=== PATIENT | male | born 2005 | race Caucasian/White ===

== ENCOUNTER 2024-04-14 10:06 | Outpatient (CLI) | payer OTHER, SELFPAY | END 2024-04-14 10:07 | disposition home or self-care (01) | PROVIDERS: Visit Provider Family Medicine | DX: T50.7X1A Poisoning by analeptics and opioid receptor antagonists, accidental (unintentional), initial encounter (principal); R53.83 Other fatigue; Y92.003 Bedroom of unspecified non-institutional (private) residence as the place of occurrence of the external cause | CPT/HCPCS: A0425; A0429 ==

== ENCOUNTER 2024-04-14 11:02 | Emergency (ER) | payer OTHER, SELFPAY ==
[2024-04-14] VITALS (17 sets, daily range): BP systolic 105–121; BP diastolic 56–72; PULSE 63–92; RESP 7–17; O2SAT 93–99; BMI 35.9
--- OUTSIDE RECORDS SUMMARY | 2024-04-14 12:16 | XMS_ITS | Clinical Summary ---
Author Organization [employer] [facility] Address [address] [place] [address] Care Team Providers Care Heart Coordinator Name Role Phone Curtis Parnell MD Primary Care Provider [phone] Allergies No known active allergies Medications albuterol HFA (PROAIR HFA) 90 mcg/actuation inhalerIndicatio ns:Exercise-corona carlie asthma Inhale 2 Puffs by mouth 4 times daily if needed. 1 Inhaler 3 11/26/2019 Active Active Problems Problem Noted Date Diagnosed Date Need for prophylactic vaccin ation and inoculation against other combinations of diseases 10/31/2006 Immunizations Name Administration Dates Next Due DTaP 11/07/2007,10/31/2006 [id number] (Pediarix) 2003,2003,0 2003 HIB PRP-OMP (PedvaxHIB) 10/31/2006,2003, HIB PRP-T (ActHIB,Hiberix) 2003 HPV 9 (Gardasil 9) 09/26/2015 Hepatitis A (Peds) 09/26/2015 Inactivated Polio Vaccine 11/07/2007 Influenza Virus, Unspecified 2003 Influenza, IIV3 (Age 6-35 mos) 11/17/2010 Influenza, IIV3 (Age >=3 years) 11/24/2012 MENINGOCOCCAL VACCINE 2 VIAL 2MO-55YO (MENVEO) 01/29/2022,09/26/2015 MMR 10/22/2008,10/29/2004 Pneumococcal conj 7-Valent (Prevnar 7) 0 11/07/2007,2003,2003,08/06 Smallpox-Monkeypox (Jynneos) Live, PF 01/12/2023 Tdap 05/23/2023,09/26/2015 Varicella Vaccine 01/29/2022,10/22/2008,11/03/19 05 Family History Medical History Relation Name Comments Diabetes Other 1 Cancer Other 2 Relation Name Status Comments Brother Alive Father Alive Mother Alive Other 1 Other 2 Sister Alive Social History Tobacco Use Types Packs/Day Years Used Date Smoking Tobacco: Some Days Cigarettes Started: 02/14/2018 Passive Smoke Exposure: Current Smokeless Tobacco: Never Tobacco Cessation:Ready to Q uit: Not Asked; Counseling Given: Not Answered Alcohol Use Standard Drinks/Week Comments Not Currently 0 (1 standard drink = 0.6 oz pur e alcohol) PHQ-2 Answer Date Recorded PHQ-2 TOTAL SCORE 3 01/29/2022 Social Connections Answer Date Recorded Frequency of Communication with Friends and Fami ly Not on file 01/29/2022 Financial Resource Strain Answer Date R ecorded Difficulty of Paying Living Expenses Not on file 02/14/2021 Difficulty of Paying Living Expenses Not on file 02/14/2021 Sex and Gender Information Value Date Recorded Sex Assigned at Not on file 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 Gender Identity Not on file Sexual Orientation Not on file Obstetrics History Last Filed Vital Signs Vital Sign Reading Time Taken Comments Blood Pressure 120/60 11/11/2022 4:16 PM CDT Pulse 82 11/11/2022 4:16 PM CDT Temperature 37 C (98.6 F) 11/11/2022 4:16 PM CDT Respiratory Rate 20 11/07/2007 5:32 PM CDT Oxygen Saturation 95% 11/11/2022 4:16 PM CDT Inhaled Oxygen Concentration - - Weight 90.5 kg (199 lb 7 oz) 11/11/2022 4:16 PM CDT Height 174.8 cm (5' 8.82) 11/06/2022 3:40 PM CD T Body Mass Index 29.61 11/06/2022 3:40 PM CDT Plan of Treatment Health Maintenance Due Date Last Done Comments HPV series for age 9-26 (2 - Male 2-dose series) 03/28/2016 09/26/2015 Hepatitis C screening for ag e 18-79 04/29/2021 Pneumococcal series for age 6-49 (1 of 2 - PCV) 04/29/2022 11/07/2007, 2003, 2003, Additional history exists Depression screening for age 12+ 01/29/2023 01/29/2022, 11/09/2018, 09/26/2015 Well Child Check for age 3-20 01/29/2023, 11/26/2019, 09/26/2015, Additional history exists COVID-19 vaccine series ( - season) 2023 03/03/2022 Influenza for age 9-49 10/16/2023 11/24/2012, 2003 BMI (ht and wt on same day) for age 18+ 11/07/2023 11/06/2022, 01/29/2022 Tetanus booster 05/22/2033 05/23/2023, 09/26/2015 HIV for age 15-65 Completed 01/29/2022 Meningococcal series for age 11-21 Completed 2021, 09/26/2015 Tdap Completed 05/23/2023, 09/26/2015 Procedures Procedure Name Priority Date/Time Associated Diagnosis Comments ANTI HIV 1/2 Routine 01/29/2022 2:25 PM FISHERIES TECHNICAL OFFICER Screening for HIV (human immunodeficiency virus) from Last 3 Months or Most Recently Relevant to Health Maintenance Results * ANTI HIV 1/2 [48029.0] (01/29/2022 2:25 PM FISHERIES TECHNICAL OFFICER) HIV-1/HIV-2 ANTIBODY Non-Reacti ve Non-Reacti ve 01/31/2022 8:30 PM FISHERIES TECHNICAL OFFICER [facility] Comment:HIV-1 p24 and HIV-1/ HIV-2 Ab not detected. Blood BLOOD SPECIMEN / Unknown Venipuncture / Unknown 01/29/2022 2:25 PM FISHERIES TECHNICAL OFFICER 01/29/2022 2:25 PM FISHERIES TECHNICAL OFFICER Curtis Parnell MD SEND OUTS Final Resu lt [facility] [address] [place] [address], from Last 3 Months or Most Recently Relevant to Health Maintenance Care Teams Heart Coordinator Relationship Specialty Start Date End Date Curtis Parnell MD [address] [place] [address] PCP - General Family Practice 08/24/12
--- OUTSIDE RECORDS SUMMARY | 2024-04-14 12:16 | XMS_ITS | Clinical Summary ---
Author Organization [facility] Address [address] [place], [place] [address] [address] Care Team Providers Care Rehabilitation Therapy Aide Name Role Phone No Ref-Primary, Physician Primary Care Provider Allergies No known active allergies Medications naloxone (NARCAN) 4 MG/0.1ML nasal spray [place] 1 spray (4 mg) into one nostril alternating nostrils as needed for opioid reversal every 2-3 minutes until assistance arrives 0.2 mL Active Social History Tobacco Use Types Packs/Day Years Used Date Smoking Tobacco: Never Assessed Adolescent Education Answer Date Record ed Getting School Help Needed Not on file 11/20 Sex and Gender Information Value Date Recorded Sex Assigned at Not on file Legal Sex Male 11:19 PM CDT Gender Identity Not on file Sexual Orientation Not on file Last Filed Vital Signs Vital Sign Reading Time Taken Comments Blood Pressure 110/57 04/05/2023 5:00 AM SOCIAL SERVICES MANAGER Pulse 92 04/05/2023 5:00 AM SOCIAL SERVICES MANAGER Temperature 36.9 C (98.4 F) 04/05/2023 4:00 AM SOCIAL SERVICES MANAGER Respiratory Rate 10 04/05/2023 5:00 AM SOCIAL SERVICES MANAGER Oxygen Saturation 93% 04/05/2023 5:00 AM SOCIAL SERVICES MANAGER Inhaled Oxygen Concentration - - Weight 95.3 kg (210 lb) 04/05/2023 1:41 AM SOCIAL SERVICES MANAGER Height 177.8 cm (5' 10) 04/05/2023 1:41 AM SOCIAL SERVICES MANAGER Body Mass Index 30.13 04/05/2023 1:41 AM SOCIAL SERVICES MANAGER Plan of Treatment Health Maintenance Due Date Last Done Comments ADVANCE CARE PLANNING 2003 ANNUAL REVIEW OF HM ORDERS 2003 HPV IMMUNIZATION (2 - Male 2-dose series) 03/28/2016 09/26/2015 HIV SCREENING 04/29/2018 MENINGITIS B IMMUNIZATION (1 of 2 - Standard) 2019 HEPATITIS C SCREENING 04/29/2021 YEARLY PREVENTIVE VISIT 01/29/2023 01/29/2022, 11/25 COVID-19 Vaccine (2 - season) 2023 03/03/2022 INFLUENZA VACCINE (#1) 2023 3, 11/17/2010, 2003 PHQ-2 (once per calendar year) 2024 DTAP/TDAP/TD IMMUNIZATION (8 - Td or Tdap) 05/22/2033 05/23/2023, 09/26/2015, 11/07/2007, Additional history exists ZOSTER IMMUNIZATION (1 of 2) 04/29/2053 HEPATITIS B IMMUNIZATION Completed 004, 2003, 2003 Pneumococcal Vaccine: Pediatrics (0 to 5 Years) and At-Risk Patients (6 to 49 Years) Aged Out 11/07/2007, 2003, 2003, Additional history exists No longer eligible based on patient's age to complete this topic MENINGITIS IMMUNIZATION Completed 01/29/2022, 09/25 Care Teams Rehabilitation Therapy Aide Relationship Specialty Start Date End Date No Ref-Primary, Physician PCP - General 04/05/23
--- OUTSIDE RECORDS SUMMARY | 2024-04-14 12:16 | XMS_ITS | Clinical Summary ---
Author Organization [facility] Address [address] [place] [address] Care Team Providers Care Flaker Operator Name Role Phone None Reported, Pcp Primary Care Provider Unavail able Source Comments Patient records contain information from all sites at [facility]. For routine questions regarding patient records, call [phone] during business hours, M-F 8:00 AM - 5:00 PM Central Time. Record requests for emergency care only can be directed to [phone] at any time.[facility] Allergies No known active allergies Medications hydrOXYzine (ATARAX) 25 mg tablet Take 25 mg by mouth every 6 (six) hours as needed. Active busPIRone (BUSPAR) 7.5 mg tablet Take 7.5 mg by mouth 3 (three) times a day. Active ARIPiprazole (ABILIFY) 5 mg tablet Take 5 mg by mouth daily. Active Active Problems No known active problems Immunizations Immunization Administration Dates Next Due DTaP (Infanrix, Tripedia) 11/07/2007,,2003,2003,2003 HepB, Unspecified 2003,2003,08/07/19 04 Hib, Unspecified 10/31/2006,2003, 4 IPV 11/07/2007, 4,2003,2003 Influenza Split 2003 MMR 10/22/2008,11/02/2004 PCV7 (discontinued) 11/07/2007, 4,2003,2003 Tdap 05/23/2023 [place] 10/22/2008,11/02/2004 influenza trivalent vaccine (6 months and older)(PF) 11/17/2010 Social History Tobacco Use Types Packs/Day Years Used Date Smoking Tobacco: Never Tobacco Cessation:Counseling Given: Not Answered Alcohol Use Standard Drinks/Week Comments Not Currently 0 (1 standard drink = 0.6 oz pur e alcohol) Nutrition Answer Date Recorded Nutrition: EVOO Fat Source Unknown 05/22 Nutrition: Servings of Fruits/Vegetables per Day Not on file 05/23/2023 Dental Answer Date Recorded Dental: Regular Dentist Unknown 05/23/19 24 Sex and Gender Information Value Date Recorded Sex Assigned at Not on file 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 Body Mass Index - - Plan of Treatment Health Maintenance Due Date Last Done Comments HIV Screening 2003 Hearing Screening during Well Child Visit 2003 Hepatitis C Screening 2003 TB Screening during Well Child Visit 2003 1 week Well Child Check-Up 2003 1 month Well Child Check-Up 2003 2 month Well Child Check-Up 2003 4 month Well Child Check-Up 2003 9 month Well Child Check-Up 2003 15 month Well Child Check-Up 06/29/2004 18 month Well Child Check-Up 09/29/2004 2 year Well Child Check-Up 04/01/2005 30 month Well Child Check-Up 09/29/2005 3 year Well Child Check-Up 04/01/2006 Well Child Check-Up Completed in Past Year 04/01/2006 5 year Well Child Check-Up 04/01/2008 6 year Well Child Check-Up 04/01/2009 7 year Well Child Check-Up 04/01/2010 8 year Well Child Check-Up 04/01/2011 10 year Well Child Check-Up 04/01/2013 12 year Well Child Check-Up 04/01/2015 HPV Vaccines (2 - Male 2-dose series) 03/28/2016 09/26/2015 13 year Well Child Check-Up 04/01/2016 14 year Well Child Check-Up 04/01/2017 Vision Screening during Well Child Visit 04/29/2017 15 year Well Child Check-Up 04/01/2018 16 year Well Child Check-Up 04/26/2019 17 year Well Child Check-Up 04/01/2020 18 year Well Child Check-Up 04/01/2021 19 year Well Child Check-Up 04/01/2022 20 year Well Child Check-Up 04/01/2023 COVID-19 Vaccine ( season) 2023 Influenza Vaccine (#1) 2023 3, 11/17/2010, 2003 Depression Screening (Annual PHQ-2) 02/15/2024 19 year Well Child Check-Up 04/01/2024 Well Child Check-Up ([facility]) 04/01/2024 Glucose Test for Med Monitoring 04/05/2024 04/05/2023 DTaP,Tdap,and Td Vaccines (8 - Td or Tdap) 05/22/2033 05/23/2023, 09/26/2015, 11/07/2007, Additional history exists Hepatitis B Vaccines Completed 2003, 2003, 2003, Additional history exists IPV Vaccines Completed 11/07/2007, 05/2003, 2003, Additional history exists Pneumococcal vaccine (0-49 years) Aged Out 11/07/2007, 2003, 2003, Additional history exists No longer eligible based on patient's age to complete this topic Meningococcal Vaccine Completed 01/29/2022, 016 Insurance [facility] Care Teams Flaker Operator Relationship Specialty Start Date End Date None Reported, Pcp PCP - General 12/23/23
--- NOTE | 2024-04-14 12:26 | ED.OVERDOSE ---
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 He states that he went through treatment and completed at about 4 months ago and was sober until today. He states that he bought some fentanyl on the street yesterday and smoked it today. His mother found him looking cyanotic and breathing about 3 times a minute. She had trouble getting the Narcan at home ready for injection but eventually he received 3 injections of Narcan and revived. He comes in here with normal vital signs and normal exam. He is not showing any signs of withdrawal on arrival. He states that he also uses marijuana but denies using anything else. He has been on antidepressant medicines that he states helped him but for some reason he discontinued these about 2 months ago. These medicines included BuSpar own, Lexapro, and hydroxyzine. He states that he does have access to ongoing group therapy and support options. Related Data Previous Rx's ?Medication ?Instructions ?Recorded buspirone 10 mg tablet 10 mg PO BID #60 tabs 04/14/24 escitalopram oxalate 10 mg tablet 10 mg PO DAILY #30 tabs 04/14/24 (Lexapro) hydroxyzine HCl 25 mg tablet 25 mg PO QID #30 tabs 04/14/24 Allergies Allergy/AdvReac Type Severity Reaction Status Date / Time No Known Drug Allergies Allergy Verified 04/14/24 10:57 Review of Systems Status of ROS: Reports: 10 or more systems reviewed and unremarkable except as noted in History and below Narrative: Constitutional: No fevers, no weight gain or loss. Eyes: No discharge. No vision changes. HENT: No congestion, no sore throat, no ear pain. Cardiovascular: No chest pain, no palpitations. Respiratory: No shortness of breath, no wheezes, no cough. Gastrointestinal: No abdominal pain, no vomiting, no diarrhea. Genitourinary: No dysuria, no hematuria. Musculoskeletal: Normal range of motion. Skin: No rashes, no pruritis. Neurological: No dizziness, weakness, sensory change, speech change. Endo/Heme/Allergies: No bruising or bleeding. No polydipsia. Pysch: no suicidality, no anxiety, no insomnia. All other systems reviewed and are negative. PFSH PFSH Social History Smoking Status: Current every day smoker Do you use any of these nicotine containing products: Vaping Products Non-prescribed substance use: former substance user, marijuana (any form) and other Non-prescribed substance use details: fentanyl Exam Narrative: Exam Narrative: Constitutional: Well-developed, well-nourished, no acute distress. HEENT: Normocephalic, atraumatic. Neck: Normal range of motion. Nontender. Supple. Heart: Regular. No murmurs. Normal rate. Intact distal pulses. Lungs: Clear to auscultation. No chest discomfort. No wheezes, rhonchi, or rales. Abdomen: Normal bowel sounds. Nontender. No rebound tenderness. Genitalia: Deferred. Back: No midline tenderness. Normal range of motion. Extremities: Normal range of motion. No injury. Skin: Intact. No rash. Warm. No erythema or pallor. Neurologic: No altered sensation. No weakness. Alert and oriented. Psychiatric: No suicidality. No anxiety or depression. No insomnia. Nursing notes and vitals signs are reviewed. Const: Vital Signs, click to edit/add: Vital Signs - 24 hr 04/14/24 10:58 04/14/24 11:24 04/14/24 11:30 Pulse Rate 82 82 Pulse Rate [Pulse Oximeter] 84 Respiratory Rate 14 Blood Pressure Blood Pressure [Le ft Upper Arm] 121/59 L Pulse Oximetry 95 95 94 Oxygen Delivery Me thod Room Air 04/14/24 11:32 04/14/24 11:45 04/14/24 11:47 Pulse Rate 92 83 78 Pulse Rate [Pulse Oximeter] Respiratory Rate Blood Pressure 105/56 L 116/63 Blood Pressure [Le ft Upper Arm] Pulse Oximetry 93 95 95 Oxygen Delivery Me thod 04/14/24 12:00 04/14/24 12:01 04/14/24 12:15 Pulse Rate 79 81 Pulse Rate [Pulse Oximeter] Respiratory Rate 15 12 Blood Pressure 108/72 Blood Pressure [Le ft Upper Arm] Pulse Oximetry 95 96 Oxygen Delivery Me thod 04/14/24 12:17 Pulse Rate 73 Pulse Rate [Pulse Oximeter] Respiratory Rate 11 L Blood Pressure 115/70 Blood Pressure [Le ft Upper Arm] Pulse Oximetry 99 Oxygen Delivery Me thod Course Vital Signs Vital signs: Initial Vital Signs Temperature Source Temporal Artery Scan 04/14/24 10:58 Pulse Rate 84 04/14/24 10:58 Respiratory Rate 14 04/14/24 10:58 Blood Pressure 121/59 L 04/14/24 10:58 Blood Pressure Mean 79 04/14/24 10:58 Blood Pressure Position Sitting 04/14/24 10:58 Pulse Oximetry 95 04/14/24 10:58 Oxygen Delivery Method Room Air 04/14/24 10:58 Vital Signs Pulse Rate 84 04/14/24 10:58 Respiratory Rate 14 04/14/24 10:58 Blood Pressure 121/59 L 04/14/24 10:58 Pulse Oximetry 95 04/14/24 10:58 Oxygen Delivery Method Room Air 04/14/24 10:58 Pulse Rate 73 04/14/24 12:17 Respiratory Rate 11 L 04/14/24 12:17 Blood Pressure 115/70 04/14/24 12:17 Pulse Oximetry 99 04/14/24 12:17 Oxygen Delivery Method Room Air 04/14/24 10:58 MDM - Overdose MDM Narrative Medical decision making narrative: This patient comes in because of a fentanyl overdose. His mother has arrived also and was part of our conversations. The patient currently is asymptomatic and not showing any signs of withdrawal. I did discuss options including labs, imaging, and mental health assessment. The patient's mother does have Narcan at home but would prefer to have nasal dosing which could be administered more quickly if needed as she had trouble getting the injection ready. The patient and his mother feel okay for him to return home. He does have good follow-up options. I did provide prescriptions for his antidepressant medicines including Lexapro, buspirone, and hydroxyzine. The patient's mother did receive Narcan that can be administered intranasally. Discharge Plan Discharge Clinical Impression: Drug overdose Patient Disposition: Home w/ Parent or Adult Condition: Improved Additional Instructions: Restart antidepressant medicines as prescribed. Resume connections with croup and support therapy options. Follow up with MD for ongoing management of medications. Return if worsening. Prescriptions: New hydroxyzine HCl 25 mg tablet 25 mg PO QID Qty: 30 0RF escitalopram oxalate [Lexapro] 10 mg tablet 10 mg PO DAILY Qty: 30 2RF buspirone 10 mg tablet 10 mg PO BID Qty: 60 2RF Follow Up/Referrals: Provider,Not a Local [Primary Care Provider] - Stand Alone Forms: Clue App Info Instructions
== END 2024-04-14 13:20 | disposition home or self-care (01) ==
PROVIDERS: Emergency Provider Emergency Medicine Emergency Medical Services
DX: T40.411A Poisoning by fentanyl or fentanyl analogs, accidental (unintentional), initial encounter (principal)
CPT/HCPCS: 93005; 94761; 99284